=== PATIENT | male | born 1995 | race Caucasian/White ===

== ENCOUNTER 2017-08-26 00:08 | Emergency (ER) | payer BC ==
[~2017-08-26] VITALS: Ht 188 cm; Wt 104.5 kg
[2017-08-26 00:12] VITALS: BP 138/66; PULSE 66; TEMP 98.2
== END 2017-08-26 01:00 | disposition home or self-care (01) ==
LOC: COL.ER 00:08
DX: L55.9 Sunburn, unspecified (principal)